=== PATIENT | male | born 1970 | race Two or more races ===

== ENCOUNTER 2021-12-10 23:54 | Emergency (ER) | payer SELFPAY ==
[2021-12-11] MEDS ORDERED: Ondansetron 4 MG/2 ML SDV ONE (01:11)
[2021-12-11] MEDS ORDERED: Sodium Chloride 0.9% 1,000 ML ONE (01:11)
[2021-12-11] MEDS ORDERED: HYDROmorphone 1 MG/ML Syringe ONE ×2 (01:11→02:35)
[2021-12-11] MEDS ORDERED: Lidocaine 2% Viscous Solution 15 ML UD ONE (04:52)
[2021-12-11] MEDS ORDERED: Aluminum Hydroxide/Magnesium Hydroxide/Simethicone Susp 30 ML Cup ONE (04:53)
[2021-12-11] MEDS ORDERED: Sucralfate Suspension 1 GM/10 ML Cup ONE (05:36)
== END 2021-12-11 06:00 | disposition home or self-care (01) ==
LOC: JD.ED 23:54
DX: K29.70 Gastritis, unspecified, without bleeding (principal); Z72.0 Tobacco use
CPT/HCPCS: 36415; 74177; 80053; 83690; 83735; 85007; 85027; 99284; A9270; J1170; J2405; J7030; 99285

== ENCOUNTER 2023-12-21 10:06 | Emergency (ER) | payer SELFPAY ==
[2023-12-21 10:40] LABS: BASOPHILS PERCENT AUTO 0.7 % (0.0-1.0); EOSINOPHILS ABSOLUTE AUTO 0.5 K/mm3 (0.0-0.4); EOSINOPHILS PERCENT AUTO 7.6 % (0.0-6.0); HEMOGLOBIN 15.7 gm/dl (14.0-18.0); IMMATURE GRAN ABSOLUTE AUTO 0.01 K/mm3 (0.00-0.05); IMMATURE GRAN PERCENT AUTO 0.2 % (0.0-0.4); LYMPHOCYTES ABSOLUTE AUTO 2.2 K/mm3 (1.0-4.8); MEAN CORPUSCULAR HGB CONC 34.9 g/dl (32.0-36.0); MONOCYTES ABSOLUTE AUTO 0.5 K/mm3 (0.0-0.8); MONOCYTES PERCENT AUTO 8.6 % (0.0-8.0); NEUTROPHILS ABSOLUTE AUTO 2.8 K/mm3 (1.8-7.7); NEUTROPHILS PERCENT AUTO 46.9 % (41.0-71.0); PLATELET COUNT,PLT 237 K/mm3 (150-400); RED BLOOD CELL COUNT 5.42 M/mm3 (4.52-5.90); WHITE BLOOD CELL COUNT,WBC 6.03 K/mm3 (3.9-11.3)
[2023-12-21] MEDS: Aspirin 81 MG Tab.Chew PO ONE (10:47)
[2023-12-21 10:52] LABS: ALBUMIN 3.6 g/dl (3.4-5.0); BILIRUBIN TOTAL 0.6 mg/dL (0.2-1.0); BUN/CREATININE RATIO 13.3 (14-18); CREATININE 0.9 mg/dL (0.7-1.3); EST CRCL DRUG DOSING (CG) 92.4 mL/min; PROTEIN TOTAL,TP 7.2 g/dl (6.4-8.2)
== END 2023-12-21 12:03 | disposition home or self-care (01) ==
LOC: JD.ED 10:06
DX: R07.89 Other chest pain (principal); F17.210 Nicotine dependence, cigarettes, uncomplicated; Z79.899 Other long term (current) drug therapy
CPT/HCPCS: 36415; 71046; 80053; 84484; 85025; 85379; 93005; 99285; A9270; 93010; 99283

== ENCOUNTER 2023-12-24 11:46 | Emergency (ER) | payer OTHER ==
[2023-12-24 12:49] LABS: BASOPHILS PERCENT AUTO 0.3 % (0.0-1.0); EOSINOPHILS ABSOLUTE AUTO 0.2 K/mm3 (0.0-0.4); EOSINOPHILS PERCENT AUTO 2.9 % (0.0-6.0); HEMATOCRIT 43.4 % (42.0-52.0); HEMOGLOBIN 14.7 gm/dl (14.0-18.0); IMMATURE GRAN ABSOLUTE AUTO 0.01 K/mm3 (0.00-0.05); IMMATURE GRAN PERCENT AUTO 0.2 % (0.0-0.4); LYMPHOCYTES ABSOLUTE AUTO 1.9 K/mm3 (1.0-4.8); LYMPHOCYTES PERCENT AUTO 32.4 % (24.0-44.0); MEAN CORPUSCULAR HEMOGLOBIN 28.3 pg (28.0-32.0); MEAN CORPUSCULAR HGB CONC 33.9 g/dl (32.0-36.0); MEAN CORPUSCULAR VOLUME 83.5 fl (83.0-99.0); MEAN PLATELET VOLUME 8.8 fl (9.4-12.4); MONOCYTES ABSOLUTE AUTO 0.6 K/mm3 (0.0-0.8); MONOCYTES PERCENT AUTO 10.8 % (0.0-8.0); NEUTROPHILS ABSOLUTE AUTO 3.1 K/mm3 (1.8-7.7); NEUTROPHILS PERCENT AUTO 53.4 % (41.0-71.0); PLATELET COUNT,PLT 247 K/mm3 (150-400); WHITE BLOOD CELL COUNT,WBC 5.84 K/mm3 (3.9-11.3)
[2023-12-24] MEDS: Aluminum Hydroxide/Magnesium Hydroxide/Simethicone Susp 30 ML Cup PO ONE (12:50)
[2023-12-24] MEDS: Famotidine 20 MG/2 ML SDV IVPUSH ONE (12:50)
[2023-12-24 13:16] LABS: A/G RATIO 1.1 (1-2); ALBUMIN 3.5 g/dl (3.4-5.0); ANION GAP 13.7 (5-15); BILIRUBIN TOTAL 0.5 mg/dL (0.2-1.0); BUN/CREATININE RATIO 12.9 (14-18); CALCIUM 8.9 mg/dL (8.5-10.1); CREATININE 0.7 mg/dL (0.7-1.3); EST CRCL DRUG DOSING (CG) 119.43 mL/min; POTASSIUM,K 3.7 mEq/L (3.5-5.1); PROTEIN TOTAL,TP 6.6 g/dl (6.4-8.2)
[2023-12-24] MEDS: Iopamidol 612 MG/ML 100 ML Bottle IVPUSH ONE (13:55)
[2023-12-24] MEDS: Sodium Chloride 0.9% 10 ML Syringe FLUSH PRN (13:55)
[2023-12-24] MEDS: Pantoprazole 40 MG Vial IVPUSH ONE (14:17)
[2023-12-24] MEDS: Sucralfate Suspension 1 GM/10 ML Cup PO ONE (14:17)
== END 2023-12-24 15:06 | disposition home or self-care (01) ==
LOC: JD.ED 11:46
DX: K29.00 Acute gastritis without bleeding (principal); K27.9 Peptic ulcer, site unspecified, unspecified as acute or chronic, without hemorrhage or perforation; F17.210 Nicotine dependence, cigarettes, uncomplicated
CPT/HCPCS: 36415; 74177; 80053; 83690; 84484; 85025; 93005; 96374; 96375; 99284; A9270; C9113; J3490; Q9967; 93010